=== PATIENT | male | born 1975 | race Caucasian/White ===

== ENCOUNTER 2017-10-11 09:02 | Outpatient (CLI) | payer BC ==
--- NOTE | 2017-10-12 08:11 | Diagnostic Imaging Report ---
APPROVED REPORT CPT Code: 33707 Symptoms Other : Edema BILATERAL UPPER EXTREMITY: Imaging of the subclavian, axillary, and proximal brachial arteries is within normal limits. There is no evidence of stenosis or occlusion within these segments. The Doppler waveforms of the bilateral upper extremity are tri-phasic, consistent with normal inflow to the upper extremity. However, the distal brachial, radial and ulnar arteries are in vasodilation waveforms due to edema, following a fist the waveform becomes tri-phasic Doppler flow.
--- NOTE | 2017-10-12 08:11 | Diagnostic Imaging Report ---
APPROVED REPORT CPT Code: 34232 Symptoms Comments: Swelling BILATERAL: Common femoral artery waveform analysis is within normal limits at rest. Color flow duplex sonography reveals patency of the superficial femoral, popliteal, and tibial arteries, there is no evidence of stenosis or occlusion within these segments. Doppler tibial artery waveform analysis is within normal limits, bilaterally. There is no evidence of significant arterial occlusive disease, bilaterally.
--- NOTE | 2017-10-12 08:12 | Diagnostic Imaging Report ---
APPROVED REPORT CPT Code: 27152 Present Symptoms Upper Extremity Edema: Bilateral BILATERAL UPPER EXTREMITY: Imaging reveals patency of the internal jugular, subclavian, axillary and brachial veins. The cephalic and basilic veins are also patent. Doppler indicates normal spontaneous flow within these venous segments, bilaterally.
== END 2017-10-11 11:02 | disposition home or self-care (01) ==
LOC: VAS 09:02
DX: R60.0 Localized edema (principal)
CPT/HCPCS: 93925; 93930; 93970